=== PATIENT | female | born 1995 | race Caucasian/White ===

== ENCOUNTER 2022-08-05 12:05 | Inpatient (IN) | payer OTHER ==
[2022-08-05 13:13] VITALS: BMI 39.0
[2022-08-05] MEDS ORDERED: CITRIC ACID/SODIUM CITRATE 30 ML UNIT-DOSE CUP PO ONE (13:21)
[2022-08-05] MEDS ORDERED: ELECTROLYTE-148 SOLN 1,000 ML IV SCH (13:30)
[2022-08-05] MEDS ORDERED: ceFAZolin SODIUM 1 GM VIAL ONE (13:41)
[2022-08-05] MEDS ORDERED: OXYTOCIN 30 UNITS in 0.9% NS 30 UNIT/500 ML INFUS.BAG IVPB ONE (13:41)
[2022-08-05] MEDS ORDERED: KETOROLAC TROMETHAMINE 30 MG/1 ML VIAL ONE (13:42)
[2022-08-05] MEDS ORDERED: morphine SULFATE/PF 1 MG/2 ML (2cc Syringe - QUVA) ONE (13:42)
[2022-08-05] MEDS ORDERED: PHENYLEPHRINE HCL 10 MG/1 ML SINGLE DOSE VIAL ONE (13:42)
[2022-08-05] MEDS ORDERED: ONDANSETRON 4 MG/2 ML VIAL ONE (13:42)
[2022-08-05] MEDS ORDERED: METOCLOPRAMIDE HCL INJECTION 10 MG/2 ML VIAL ONE (13:42)
[2022-08-05] MEDS ORDERED: morphine SULFATE/PF 1 MG/2 ML (2cc Syringe - QUVA) IT ONE (14:21)
[2022-08-05] MEDS ORDERED: IBUPROFEN 800 MG/8 ML IJ IVPB PRN (14:57)
[2022-08-05] MEDS ORDERED: ACETAMINOPHEN 325 MG TABLET (FP) PO PRN (14:57)
[2022-08-05] MEDS ORDERED: OXYTOCIN 20 UNITS in 0.9% NS 20 UNIT/1,000 ML INFUS.BAG IV ONE (15:05)
[2022-08-05] MEDS ORDERED: ONDANSETRON 4 MG/2 ML VIAL IVPUSH PRN (15:15)
[2022-08-05] MEDS: OXYTOCIN 20 UNITS in 0.9% NS 20 UNIT/1,000 ML INFUS.BAG IV SCH (15:33)
[2022-08-05] MEDS: FERROUS SO4 325 MG TABLET (FP) PO SCH (17:27)
[2022-08-05] MEDS: METHYLERGONOVINE MALEATE 0.2 MG/1 ML AMP IM PRN ×2 (17:54→22:06)
[2022-08-06] MEDS: METHYLERGONOVINE MALEATE 0.2 MG TABLET (FP) PO SCH ×6 (00:03→17:56)
[2022-08-06] MEDS: OXYTOCIN 20 UNITS in 0.9% NS 20 UNIT/1,000 ML INFUS.BAG IV SCH (00:38)
[2022-08-06] MEDS: SIMETHICONE 80 MG TAB.CHEW (FP) PO PRN ×3 (06:32→17:56)
[2022-08-06 08:47] LABS: BASO % 0.1 % (0-2.0); EOS % 0.3 % (0-4.5); HEMATOCRIT 40.1 % (32.4-45.2); HEMOGLOBIN 13.6 GM/dL (10.7-15.3); LYMPH % 13.3 % (8-40); MCH 30.6 pg (25.7-33.7); MCHC 33.8 g/dl (32.0-36.0); MEAN CELL VOLUME 90.4 fl (80-96); MEAN PLT VOLUME 9.1 fl (7.5-11.1); MONO % 5.6 % (3.8-10.2); NEUT % 80.7 % (42.8-82.8); PLATELET COUNT 223 10^3/uL (134-434); RBC 4.43 M/mm3 (3.60-5.2); RDW 15.1 % (11.6-15.6); WHITE BLOOD COUNT 10.7 K/mm3 (4.0-10.0)
[2022-08-06] MEDS ORDERED: DIPHTH,PERTUSS(ACELL),TET 0.5 ML DISP.SYRIN IM ONE (10:00)
[2022-08-06] MEDS ORDERED: FLU VACC QS2022-23(6MOS UP)/PF 60 MCG/0.5 ML SYRINGE IM ONE (10:00)
[2022-08-06] MEDS: PRENATAL VITAMINS W/ FOLIC ACID TABLET (FP) PO SCH (10:16)
[2022-08-06] MEDS: FERROUS SO4 325 MG TABLET (FP) PO SCH ×2 (10:17→17:56)
[2022-08-06 11:50] VITALS: RESP 18
[2022-08-06] MEDS: IBUPROFEN 600 MG TABLET (FP) PO PRN ×2 (12:07→17:54)
[2022-08-06] MEDS ORDERED: BISACODYL 10 MG SUPP.RECT RC PRN (14:57)
[2022-08-07] MEDS: oxyCODONE HCL 5 MG TABLET PO PRN ×3 (03:18→19:41)
[2022-08-07] MEDS: SIMETHICONE 80 MG TAB.CHEW (FP) PO PRN ×4 (03:18→19:41)
[2022-08-07] MEDS: PRENATAL VITAMINS W/ FOLIC ACID TABLET (FP) PO SCH (09:08)
[2022-08-07] MEDS: FERROUS SO4 325 MG TABLET (FP) PO SCH ×2 (09:08→17:27)
[2022-08-07] MEDS: IBUPROFEN 600 MG TABLET (FP) PO PRN (17:26)
[2022-08-08] MEDS: IBUPROFEN 600 MG TABLET (FP) PO PRN ×2 (00:23→10:03)
[2022-08-08] MEDS: SIMETHICONE 80 MG TAB.CHEW (FP) PO PRN ×2 (05:00→10:03)
[2022-08-08] MEDS: oxyCODONE HCL 5 MG TABLET PO PRN (05:00)
[2022-08-08 08:42] LABS: BASO % 0.2 % (0-2.0); EOS % 1.2 % (0-4.5); HEMATOCRIT 34.4 % (32.4-45.2); HEMOGLOBIN 12.1 GM/dL (10.7-15.3); LYMPH % 20.9 % (8-40); MCH 31.9 pg (25.7-33.7); MCHC 35.3 g/dl (32.0-36.0); MEAN CELL VOLUME 90.4 fl (80-96); MEAN PLT VOLUME 7.7 fl (7.5-11.1); MONO % 5.8 % (3.8-10.2); NEUT % 71.9 % (42.8-82.8); PLATELET COUNT 234 10^3/uL (134-434); RBC 3.81 M/mm3 (3.60-5.2); RDW 14.6 % (11.6-15.6); WHITE BLOOD COUNT 7.5 K/mm3 (4.0-10.0)
[2022-08-08] MEDS: FERROUS SO4 325 MG TABLET (FP) PO SCH (08:54)
[2022-08-08] MEDS: PRENATAL VITAMINS W/ FOLIC ACID TABLET (FP) PO SCH (10:03)
[2022-08-08 10:26] VITALS: BP 110/71; PULSE 89; TEMP 99
== END 2022-08-08 12:25 | disposition home or self-care (01) | DRG 540 ==
LOC: JLDR 12:05 → J3W 16:50
PROVIDERS: ADMIT Obstetrics & Gynecology; ATTEND Obstetrics & Gynecology
PROC: 10D00Z1 Extraction of Products of Conception, Low, Open Approach (ICD-10-PCS; principal; 2022-08-05)
DX: O34.219 Maternal care for unspecified type scar from previous cesarean delivery (principal); O99.214 Obesity complicating childbirth; E66.9 Obesity, unspecified; Z37.0 Single live birth; O28.0 Abnormal hematological finding on antenatal screening of mother; R76.11 Nonspecific reaction to tuberculin skin test without active tuberculosis; Z3A.39 39 weeks gestation of pregnancy
CPT/HCPCS: 36415; 71046-TC-FY; 80053; 85025; 85610; 86850; 86900; 86901; 88307-TC; 90715; C9803-CS; G0008; Q2036; U0003; U0005